=== PATIENT | female | born 1945 | race Caucasian/White ===

== ENCOUNTER → 2021-09-02 | Outpatient (CLI) | payer MEDICARE, OTHER | LOC: RAD 10:36 | DX: K80.20 Calculus of gallbladder without cholecystitis without obstruction (principal); K83.9 Disease of biliary tract, unspecified ==

== ENCOUNTER → 2022-01-30 | Outpatient (CLI) | payer MEDICARE, OTHER | LOC: VAS 13:42 | DX: M79.662 Pain in left lower leg (principal) ==